=== PATIENT | male | born 1955 | race Caucasian/White ===

== ENCOUNTER → 2017-11-05 | Outpatient (CLI) | payer OTHER ==
[~2017-11-05] MED LIST: ASPI81CH PO; NAPR500 PO; OMEP20ER PO; ROSU10TA PO
== END | disposition home or self-care (01) ==
LOC: PLD 11:40 → LAB SHORT 11:40
DX: D48.5 Neoplasm of uncertain behavior of skin (principal)
CPT/HCPCS: 88305

== ENCOUNTER 2018-05-16 07:12 | Day surgery (SDC) | payer OTHER ==
[~2018-05-16] VITALS: Ht 182.9 cm; Wt 115.0 kg
[~2018-05-16 07:12] MED LIST changes: -ASPI81CH PO; +Aspirin EC81 MG PO
== END 2018-05-16 09:23 | disposition home or self-care (01) ==
LOC: ORSCSDS 07:12
PROVIDERS: Surgery
PROC: 0DBL8ZX Excision of Transverse Colon, Via Natural or Artificial Opening Endoscopic, Diagnostic (ICD-10-PCS; principal; 2018-05-16 08:30)
DX: Z12.11 Encounter for screening for malignant neoplasm of colon (principal); D12.3 Benign neoplasm of transverse colon; Z87.891 Personal history of nicotine dependence; E78.5 Hyperlipidemia, unspecified; Z79.899 Other long term (current) drug therapy
CPT/HCPCS: 88305; J7120

== ENCOUNTER → 2018-10-18 | Outpatient (CLI) | payer OTHER ==
[2018-10-18 13:51] LABS: Percent Saturation 30.5 % (20.0-50.0)
[2018-10-18 14:39] LABS: Alanine Aminotransfer (ALT/SGP 26 U/L (12-78); Albumin, Blood 4.5 g/dL (3.4-5.0); Albumin/Globulin Ratio 1.5 (0.8-1.8); Alk Phos 64 U/L (50-136); Anion Gap 6 mmol/L (6-16); Aspartate Aminotrans (AST/SGOT 20 U/L (12-37); Bilirubin, Total 1.6 mg/dL (0.1-1.0); Blood Urea Nitrogen 18 mg/dL (8-24); Bun/Creatinine Ratio 20.9 (12.0-20.0); CO2, Blood 26 mmol/L (21-32); Chloride, Blood 108 mmol/L (98-108); Creatinine, Blood 0.86 mg/dL (0.60-1.20); Glomerular Filtration Rate >60 (60-); Glucose, Blood 92 mg/dL (70-99); Sodium, Blood 140 mmol/L (136-145); Total Protein, Blood 7.5 g/dL (6.4-8.2)
== END | disposition home or self-care (01) ==
LOC: LAB 13:32 → LAB SHORT 13:32
PROVIDERS: Hospitalist
DX: Z12.5 Encounter for screening for malignant neoplasm of prostate (principal); E78.5 Hyperlipidemia, unspecified; D50.9 Iron deficiency anemia, unspecified
CPT/HCPCS: 80053; 83540; 83550; G0103

== ENCOUNTER 2019-10-06 13:49 | Emergency (ER) | payer OTHER ==
[~2019-10-06] VITALS: Ht 180.3 cm; Wt 111.1 kg
[2019-10-06] MEDS ORDERED: OXYCODONE-ACET1 EAC3 PO (16:19)
[2019-10-06] MEDS ORDERED: Magnesium Citr296 ML PO (16:32)
== END 2019-10-06 16:47 | disposition home or self-care (01) ==
LOC: ER 13:49
DX: K59.00 Constipation, unspecified (principal)
CPT/HCPCS: 74018; 99284-25

== ENCOUNTER → 2019-12-22 | Outpatient (CLI) | payer OTHER ==
[~2019-12-22] MED LIST changes: +Magnesium Citr296 ML PO; +OXYCODONE-ACET1 EAC3 PO
== END ==
LOC: LAB SHORT 15:49 → PLD 15:49
DX: D22.5 Melanocytic nevi of trunk (principal); D04.72 Carcinoma in situ of skin of left lower limb, including hip
CPT/HCPCS: 88305

== ENCOUNTER → 2021-01-19 | Outpatient (CLI) | payer OTHER | END | disposition home or self-care (01) | LOC: LAB SHORT 09:40 → LAB 09:40 | PROVIDERS: Hospitalist | DX: Z12.5 Encounter for screening for malignant neoplasm of prostate (principal) | CPT/HCPCS: G0103 ==

== ENCOUNTER 2024-08-21 08:30 | Day surgery (SDC) | payer OTHER ==
[~2024-08-21] VITALS: Ht 180.3 cm; Wt 109.2 kg
[~2024-08-21 08:30] MED LIST changes: +Lactated Ringer's 1,000 ML IV ONE; +propofoL 40 ML IV ONE
[2024-08-21] MEDS ORDERED: NAPROSYN500 MG (09:33)
[2024-08-21] MEDS ORDERED: FINA5 (09:33)
[2024-08-21] MEDS ORDERED: Prilosec10 M1 (09:34)
[2024-08-21] MEDS ORDERED: TADA10TA (09:34)
[2024-08-21] MEDS ORDERED: TAMS.4ER (09:35)
[2024-08-21] MEDS ORDERED: Lactated Ringer's 1,000 ML IV ONE (10:11)
[2024-08-21 11:07] VITALS: BP 121/80
== END 2024-08-21 11:10 | disposition home or self-care (01) ==
LOC: ORSCSDS 08:30
PROVIDERS: Surgery
PROC: 0DBM8ZX Excision of Descending Colon, Via Natural or Artificial Opening Endoscopic, Diagnostic (ICD-10-PCS; principal; 2024-08-21 10:00)
DX: R19.4 Change in bowel habit (principal); R10.31 Right lower quadrant pain; Z86.0100 Personal history of colon polyps, unspecified; D12.4 Benign neoplasm of descending colon; K64.1 Second degree hemorrhoids; K64.2 Third degree hemorrhoids; K21.9 Gastro-esophageal reflux disease without esophagitis; E78.2 Mixed hyperlipidemia; Z79.899 Other long term (current) drug therapy
CPT/HCPCS: 88305; J2704; J7120